=== PATIENT | male | born 1965 | race African-American/Black ===

== ENCOUNTER 2023-03-15 21:46 | Emergency (ER) | payer MEDICARE, OTHER ==
[~2023-03-15] VITALS: Ht 170.2 cm; Wt 105.0 kg
[~2023-03-15 21:46] MED LIST: AMLO-258 PO
[2023-03-15 22:07] VITALS: BP 148/91; PULSE 94; RESP 15; TEMP 98.3
[2023-03-15 23:17] LABS: BASOPHILS % (AUTO) 1.1 % (0.0-2.0); EOSINOPHILS % (AUTO) 2.3 % (1.0-6.0); HEMATOCRIT 32.8 % (41-53); HEMOGLOBIN 11.4 g/dL (13.5-17.5); LYMPHOCYTES # (AUTO) 2.9 K/uL (1.0-4.8); LYMPHOCYTES % (AUTO) 48.8 % (22.0-44.0); MEAN CORPUSCULAR HEMOGLOBIN 33.5 pg (26.0-34.0); MEAN CORPUSCULAR HGB CONC 34.7 G/dL (31.0-37.0); MEAN CORPUSCULAR VOLUME 97 fL (80-100); MONOCYTES # (AUTO) 0.6 K/uL (0.1-1.0); MONOCYTES % (AUTO) 9.9 % (2.0-9.0); NEUTROPHILS # (AUTO) 2.2 K/uL (1.8-7.7); NEUTROPHILS % (AUTO) 37.9 % (40.0-70.0); PLATELET COUNT (AUTO) 199 K/uL (150-450); RED BLOOD CELL COUNT(AUTO) 3.39 MIL/uL (4.50-5.90); RED CELL DISTRIBUTION WIDTH 15.1 % (11.5-14.5); WHITE BLOOD COUNT (AUTO) 5.8 K/uL (4.5-11.0)
[2023-03-15 23:21] LABS: ANION GAP 11 mmol/L (8-16); CALCIUM, TOTAL 8.7 mg/dL (8.8-10.5); CARBON DIOXIDE 28 mmol/L (22-29); CHLORIDE 101 mmol/L (98-107); CREATININE 1.04 mg/dL (0.60-1.30); GLOMERULAR FILTR. RATE CALC > 60 mL/min (>60); GLUCOSE,RANDOM 106 mg/dL (70-110); POTASSIUM 3.2 mmol/L (3.5-5.1); SODIUM SERUM 140 mmol/L (136-145); UREA NITROGEN, BLOOD 12 mg/dL (7-18)
[2023-03-15 23:27] LABS: ALANINE AMINOTRANSFERASE 17 U/L (12-78); ALBUMIN 3.4 g/dL (3.4-5.0); ALKALINE PHOSPHATASE 97 U/L (46-116); ASPARTATE AMINOTRANSFERASE 26 U/L (15-37); BILIRUBIN,TOTAL 0.4 mg/dL (0.1-1.0); TOTAL PROTEIN, SERUM 8.1 g/dL (6.4-8.2)
[2023-03-21] MEDS ORDERED: BACI28.410 TP (01:55)
[2023-03-21] MEDS ORDERED: DOXY-354 PO (01:55)
== END 2023-03-16 00:20 | disposition left against medical advice (07) ==
LOC: EMS 21:46
DX: M79.604 Pain in right leg (principal); Z53.21 Procedure and treatment not carried out due to patient leaving prior to being seen by health care provider
CPT/HCPCS: 80053; 85025; 99281

== ENCOUNTER 2024-02-15 23:52 | Emergency (ER) | payer MEDICARE, OTHER ==
[~2024-02-15] VITALS: Ht 170.2 cm; Wt 100.0 kg
[~2024-02-15 23:52] MED LIST changes: -AMLO-258 PO; +LINE600T14 PO
[2024-02-15 23:59] VITALS: BP 162/81; PULSE 98; RESP 20; TEMP 97.8; O2SAT 98
[2024-02-16 01:36] LABS: BASOPHILS % (AUTO) 0.5 % (0.0-2.0); HEMATOCRIT 38.1 % (41-53); HEMOGLOBIN 12.9 g/dL (13.5-17.5); LYMPHOCYTES # (AUTO) 1.5 K/uL (1.0-4.8); LYMPHOCYTES % (AUTO) 18.8 % (22.0-44.0); MEAN CORPUSCULAR HGB CONC 33.8 G/dL (31.0-37.0); MEAN CORPUSCULAR VOLUME 106 fL (80-100); MONOCYTES # (AUTO) 1.5 K/uL (0.1-1.0); MONOCYTES % (AUTO) 19.4 % (2.0-9.0); NEUTROPHILS # (AUTO) 4.8 K/uL (1.8-7.7); NEUTROPHILS % (AUTO) 60.3 % (40.0-70.0); PLATELET COUNT (AUTO) 263 K/uL (150-450); RED BLOOD CELL COUNT(AUTO) 3.59 MIL/uL (4.50-5.90); WHITE BLOOD COUNT (AUTO) 7.9 K/uL (4.5-11.0)
[2024-02-16 01:41] LABS: RBC MORPHOLOGY COMMENT ABNORMAL RBC MORPH
[2024-02-16] MEDS: CEPHALEXIN MONOHYDRATE 500 MG CAPSULE PO ONE (01:59)
[2024-02-16] MEDS: LIDOCAINE/PF 1% 2 ML VIAL IM ONE (01:59)
[2024-02-16] MEDS: CefTRIAXone SODIUM 1 GM/VIAL IM ONE (01:59)
[2024-02-16] MEDS ORDERED: CEPH-558 PO (02:29)
== END 2024-02-16 02:00 | disposition home or self-care (01) ==
LOC: EMS 23:57
DX: I89.0 Lymphedema, not elsewhere classified (principal); M79.604 Pain in right leg; I10 Essential (primary) hypertension; E03.9 Hypothyroidism, unspecified
CPT/HCPCS: 99283; 85025; 36415; 96372; J0696; J3490

== ENCOUNTER 2024-02-19 04:14 | Emergency (ER) | payer MEDICARE, OTHER ==
[~2024-02-19] VITALS: Ht 170.2 cm; Wt 100.0 kg
[~2024-02-19 04:14] MED LIST changes: +CEPH-558 PO
[2024-02-19 04:23] VITALS: TEMP 97.2
[2024-02-19 06:44] VITALS: BP 149/105; PULSE 100; RESP 18; O2SAT 96
== END 2024-02-19 07:53 | disposition home or self-care (01) ==
LOC: EMS 04:15
DX: I89.0 Lymphedema, not elsewhere classified (principal); I10 Essential (primary) hypertension; E03.9 Hypothyroidism, unspecified; Z91.018 Allergy to other foods; Z59.00 Homelessness unspecified
CPT/HCPCS: 99283; Z7502

== ENCOUNTER 2024-03-20 16:26 | Inpatient (IN) | payer MEDICARE, OTHER ==
[~2024-03-20] VITALS: Ht 170.2 cm; Wt 105.1 kg
[2024-03-20] MEDS ORDERED: 0.9% SODIUM CHLORIDE 10 ML SYRINGE IVP PRN (20:30)
[2024-03-20] MEDS ORDERED: VANCOMYCIN 1GM/WATER(PEG/NADA) 200 ML IV ONE (20:30)
[2024-03-20] MEDS ORDERED: ONDANSETRON HCL 4 MG/2 ML VIAL IVP PRN (21:00)
[2024-03-20] MEDS ORDERED: ACETAMINOPHEN 325 MG TABLET PO PRN (21:00)
[2024-03-20 21:24] LABS: EOSINOPHILS % (AUTO) 2.8 % (1.0-6.0); HEMATOCRIT 37.2 % (41-53); HEMOGLOBIN 12.2 g/dL (13.5-17.5); LYMPHOCYTES # (AUTO) 2.6 K/uL (1.0-4.8); LYMPHOCYTES % (AUTO) 38.5 % (22.0-44.0); MEAN CORPUSCULAR HEMOGLOBIN 34.8 pg (26.0-34.0); MEAN CORPUSCULAR HGB CONC 32.9 G/dL (31.0-37.0); MEAN CORPUSCULAR VOLUME 106 fL (80-100); MONOCYTES # (AUTO) 0.8 K/uL (0.1-1.0); MONOCYTES % (AUTO) 12.1 % (2.0-9.0); NEUTROPHILS % (AUTO) 45.6 % (40.0-70.0); PLATELET COUNT (AUTO) 338 K/uL (150-450); RED BLOOD CELL COUNT(AUTO) 3.51 MIL/uL (4.50-5.90); RED CELL DISTRIBUTION WIDTH 13.8 % (11.5-14.5); WHITE BLOOD COUNT (AUTO) 6.7 K/uL (4.5-11.0)
[2024-03-20 21:48] LABS: LACTIC ACID 1.7 mmol/L (0.4-2.0)
[2024-03-20 22:09] LABS: ANION GAP 13 mmol/L (8-16); CARBON DIOXIDE 22 mmol/L (22-29); CHLORIDE 100 mmol/L (98-107); CREATININE 1.03 mg/dL (0.60-1.30); GLOMERULAR FILTR. RATE CALC > 60 mL/min (>60); GLUCOSE,RANDOM 89 mg/dL (70-110); POTASSIUM 3.7 mmol/L (3.5-5.1); SODIUM SERUM 135 mmol/L (136-145); UREA NITROGEN, BLOOD 11 mg/dL (7-18)
[2024-03-20] MEDS: SODIUM CHLORIDE 0.9% 2,000 ML IV ONE (22:09)
[2024-03-20] MEDS: VANCOMYCIN 1.5 GM/WATER(PEG) 300 ML IV ONE (22:10)
[2024-03-20] MEDS: CefTRIAXone 1 GM/DEXTROSE 50 ML IV SCH (22:10)
[2024-03-20] MEDS: HYDROGEN PEROXIDE 473 ML SOLUTION TP SCH (22:19)
[2024-03-20] MEDS: DOCUSATE SODIUM 100 MG CAPSULE PO SCH (22:20)
[2024-03-20 23:56] VITALS: BP 141/92; PULSE 93; RESP 20; TEMP 98.7; O2SAT 96
[2024-03-21] MEDS ORDERED: LORazepam 2 MG/ML VIAL IVP PRN (00:15)
[2024-03-21] MEDS: 1: MAGNESIUM SULFATE 2 GM, MVI, ADULT NO.1 WITH VIT K 10 ML, THIAMINE 100 MG, FOLIC ACID IV SCH (02:42)
[2024-03-21 05:43] VITALS: BP 157/101; PULSE 86; RESP 20; TEMP 98.1; O2SAT 98
[2024-03-21 05:58] VITALS: BP 170/102; RESP 19; O2SAT 98
[2024-03-21] MEDS: AmLODIPine BESYLATE 10 MG TABLET PO ONE (06:28)
[2024-03-21 07:05] VITALS: BP 170/98; PULSE 89; RESP 18; TEMP 98.7; O2SAT 91
[2024-03-21 07:43] LABS: EOSINOPHILS % (AUTO) 3.7 % (1.0-6.0); HEMATOCRIT 38.7 % (41-53); HEMOGLOBIN 13.2 g/dL (13.5-17.5); LYMPHOCYTES # (AUTO) 1.6 K/uL (1.0-4.8); LYMPHOCYTES % (AUTO) 29.9 % (22.0-44.0); MEAN CORPUSCULAR HEMOGLOBIN 36.1 pg (26.0-34.0); MEAN CORPUSCULAR HGB CONC 34.1 G/dL (31.0-37.0); MEAN CORPUSCULAR VOLUME 106 fL (80-100); MONOCYTES # (AUTO) 0.7 K/uL (0.1-1.0); MONOCYTES % (AUTO) 13.5 % (2.0-9.0); NEUTROPHILS # (AUTO) 2.9 K/uL (1.8-7.7); NEUTROPHILS % (AUTO) 51.9 % (40.0-70.0); PLATELET COUNT (AUTO) 325 K/uL (150-450); RED BLOOD CELL COUNT(AUTO) 3.66 MIL/uL (4.50-5.90); RED CELL DISTRIBUTION WIDTH 14.1 % (11.5-14.5); WHITE BLOOD COUNT (AUTO) 5.5 K/uL (4.5-11.0)
[2024-03-21 07:54] LABS: APPEARANCE,URINE CLEAR (CLEAR); BILIRUBIN,URINE NEGATIVE (NEGATIVE); COLOR,URINE LIGHT YELLOW (YELLOW); GLUCOSE, URINE (UA) NEGATIVE (NEGATIVE); KETONES,URINE NEGATIVE (NEGATIVE); LEUKOCYTE ESTERASE ,URINE NEGATIVE (NEGATIVE); NITRATE,URINE NEGATIVE (NEGATIVE); OCCULT BLOOD,URINE NEGATIVE (NEGATIVE); PROTEIN,URINE NEGATIVE (NEGATIVE); UROBILINOGEN,URINE <=1.0 mg/dL (<=1.0)
[2024-03-21 07:59] LABS: ANION GAP 10 mmol/L (8-16); CALCIUM, TOTAL 9.3 mg/dL (8.8-10.5); CARBON DIOXIDE 23 mmol/L (22-29); CHLORIDE 101 mmol/L (98-107); CREATININE 0.93 mg/dL (0.60-1.30); GLOMERULAR FILTR. RATE CALC > 60 mL/min (>60); GLUCOSE,RANDOM 77 mg/dL (70-110); POTASSIUM 3.7 mmol/L (3.5-5.1); SODIUM SERUM 134 mmol/L (136-145); UREA NITROGEN, BLOOD 9 mg/dL (7-18)
[2024-03-21] MEDS: VANCOMYCIN 1GM/WATER(PEG/NADA) 200 ML IV SCH (08:32)
[2024-03-21 09:52] LABS: RBC MORPHOLOGY COMMENT ABNORMAL RBC MORPH
[2024-03-21] MEDS ORDERED: HEPARIN SODIUM,PORCINE 5,000 UNITS/ML VIAL IVP PRN (10:15)
[2024-03-21] MEDS: PIPERACILLIN/TAZO 3.375 GM/D5W 50 ML IV SCH (12:21)
[2024-03-21 12:31] LABS: BASOPHILS % (AUTO) 0.2 % (0.0-2.0); EOSINOPHILS % (AUTO) 2.8 % (1.0-6.0); HEMATOCRIT 42.4 % (41-53); HEMOGLOBIN 14.1 g/dL (13.5-17.5); LYMPHOCYTES # (AUTO) 1.3 K/uL (1.0-4.8); LYMPHOCYTES % (AUTO) 20.4 % (22.0-44.0); MEAN CORPUSCULAR HEMOGLOBIN 35.3 pg (26.0-34.0); MEAN CORPUSCULAR HGB CONC 33.3 G/dL (31.0-37.0); MEAN CORPUSCULAR VOLUME 106 fL (80-100); MONOCYTES # (AUTO) 0.6 K/uL (0.1-1.0); MONOCYTES % (AUTO) 9.4 % (2.0-9.0); NEUTROPHILS # (AUTO) 4.3 K/uL (1.8-7.7); NEUTROPHILS % (AUTO) 67.2 % (40.0-70.0); PLATELET COUNT (AUTO) 348 K/uL (150-450); RED CELL DISTRIBUTION WIDTH 14.1 % (11.5-14.5); WHITE BLOOD COUNT (AUTO) 6.3 K/uL (4.5-11.0)
[2024-03-21 12:47] LABS: PROTHROMBIN TIME 11.4 SEC (9.4-11.6)
[2024-03-21 13:47] LABS: RBC MORPHOLOGY COMMENT ABNORMAL RBC MORPH
[2024-03-21] MEDS: HEPARIN SODIUM 25000 UNITS/D5W 250 ML IV PRN (15:04)
[2024-03-21 15:47] VITALS: BP 157/95; PULSE 109; RESP 18; TEMP 98.9; O2SAT 94
[2024-03-21 20:25] VITALS: BP 139/87; PULSE 100; RESP 18; TEMP 98.9; O2SAT 98
[2024-03-21] MEDS: VANCOMYCIN 1.25 GM/WATER(PEG) 250 ML IV SCH (22:08)
[2024-03-21] MEDS: HEPARIN SODIUM,PORCINE 5,000 UNITS/ML VIAL IVP PRN (22:52)
[2024-03-22] MEDS ORDERED: HEPARIN SODIUM,PORCINE 5,000 UNITS/ML VIAL SQ SCH
[2024-03-22 04:56] VITALS: BP 140/67; PULSE 86; RESP 18; TEMP 98; O2SAT 100
[2024-03-22 07:08] LABS: ANION GAP 4 mmol/L (8-16); CALCIUM, TOTAL 9.2 mg/dL (8.8-10.5); CARBON DIOXIDE 29 mmol/L (22-29); CHLORIDE 98 mmol/L (98-107); GLOMERULAR FILTR. RATE CALC > 60 mL/min (>60); GLUCOSE,RANDOM 108 mg/dL (70-110); POTASSIUM 3.9 mmol/L (3.5-5.1); SODIUM SERUM 131 mmol/L (136-145); UREA NITROGEN, BLOOD 9 mg/dL (7-18)
[2024-03-22 07:10] LABS: BASOPHILS % (AUTO) 0.7 % (0.0-2.0); HEMATOCRIT 43.5 % (41-53); HEMOGLOBIN 14.6 g/dL (13.5-17.5); LYMPHOCYTES # (AUTO) 1.7 K/uL (1.0-4.8); LYMPHOCYTES % (AUTO) 23.6 % (22.0-44.0); MEAN CORPUSCULAR HEMOGLOBIN 35.8 pg (26.0-34.0); MEAN CORPUSCULAR HGB CONC 33.7 G/dL (31.0-37.0); MEAN CORPUSCULAR VOLUME 106 fL (80-100); MONOCYTES # (AUTO) 0.9 K/uL (0.1-1.0); NEUTROPHILS # (AUTO) 4.2 K/uL (1.8-7.7); NEUTROPHILS % (AUTO) 59.7 % (40.0-70.0); PLATELET COUNT (AUTO) 319 K/uL (150-450); RED BLOOD CELL COUNT(AUTO) 4.09 MIL/uL (4.50-5.90); WHITE BLOOD COUNT (AUTO) 7.1 K/uL (4.5-11.0)
[2024-03-22 08:00] VITALS: BP 158/90; PULSE 88; RESP 18; TEMP 98; O2SAT 100
[2024-03-22] MEDS: AmLODIPine BESYLATE 10 MG TABLET PO SCH (08:13)
[2024-03-22 08:25] LABS: RBC MORPHOLOGY COMMENT ABNORMAL RBC MORPH
[2024-03-22 19:18] VITALS: BP 137/75; PULSE 84; RESP 18; TEMP 98.7; O2SAT 98
[2024-03-23 05:26] VITALS: BP 154/88; PULSE 89; RESP 18; TEMP 98; O2SAT 98
[2024-03-23 07:28] LABS: BASOPHILS % (AUTO) 1.2 % (0.0-2.0); EOSINOPHILS % (AUTO) 4.2 % (1.0-6.0); HEMATOCRIT 43.7 % (41-53); HEMOGLOBIN 14.8 g/dL (13.5-17.5); LYMPHOCYTES # (AUTO) 2.1 K/uL (1.0-4.8); MEAN CORPUSCULAR HEMOGLOBIN 35.6 pg (26.0-34.0); MEAN CORPUSCULAR HGB CONC 33.9 G/dL (31.0-37.0); MEAN CORPUSCULAR VOLUME 105 fL (80-100); MONOCYTES # (AUTO) 0.7 K/uL (0.1-1.0); MONOCYTES % (AUTO) 10.2 % (2.0-9.0); NEUTROPHILS % (AUTO) 55.4 % (40.0-70.0); PLATELET COUNT (AUTO) 337 K/uL (150-450); RED BLOOD CELL COUNT(AUTO) 4.15 MIL/uL (4.50-5.90); RED CELL DISTRIBUTION WIDTH 14.1 % (11.5-14.5); WHITE BLOOD COUNT (AUTO) 7.3 K/uL (4.5-11.0)
[2024-03-23 07:35] LABS: ANION GAP 9 mmol/L (8-16); CALCIUM, TOTAL 9.7 mg/dL (8.8-10.5); CARBON DIOXIDE 27 mmol/L (22-29); CHLORIDE 94 mmol/L (98-107); GLOMERULAR FILTR. RATE CALC > 60 mL/min (>60); GLUCOSE,RANDOM 102 mg/dL (70-110); POTASSIUM 3.5 mmol/L (3.5-5.1); SODIUM SERUM 130 mmol/L (136-145); UREA NITROGEN, BLOOD 5 mg/dL (7-18)
[2024-03-23 07:53] VITALS: BP 142/81; PULSE 88; RESP 20; TEMP 98.1; O2SAT 98
[2024-03-23 08:12] LABS: VANCOMYCIN,RANDOM 23.8 mcg/mL (25.0-50.0)
[2024-03-23 15:48] VITALS: BP 137/79; PULSE 84; RESP 20; TEMP 98.4; O2SAT 99
[2024-03-23 20:12] VITALS: BP 117/67; PULSE 91; RESP 20; TEMP 98.9; O2SAT 99
[2024-03-24 05:14] VITALS: BP 118/70; PULSE 85; RESP 18; TEMP 98.6; O2SAT 100
[2024-03-24 07:05] LABS: BASOPHILS % (AUTO) 0.8 % (0.0-2.0); EOSINOPHILS % (AUTO) 3.7 % (1.0-6.0); HEMATOCRIT 39.4 % (41-53); HEMOGLOBIN 13.5 g/dL (13.5-17.5); LYMPHOCYTES # (AUTO) 1.7 K/uL (1.0-4.8); LYMPHOCYTES % (AUTO) 28.4 % (22.0-44.0); MEAN CORPUSCULAR HEMOGLOBIN 35.8 pg (26.0-34.0); MEAN CORPUSCULAR HGB CONC 34.2 G/dL (31.0-37.0); MEAN CORPUSCULAR VOLUME 105 fL (80-100); MONOCYTES # (AUTO) 0.8 K/uL (0.1-1.0); MONOCYTES % (AUTO) 13.9 % (2.0-9.0); NEUTROPHILS # (AUTO) 3.1 K/uL (1.8-7.7); NEUTROPHILS % (AUTO) 53.2 % (40.0-70.0); PLATELET COUNT (AUTO) 274 K/uL (150-450); RED BLOOD CELL COUNT(AUTO) 3.76 MIL/uL (4.50-5.90); RED CELL DISTRIBUTION WIDTH 13.9 % (11.5-14.5); WHITE BLOOD COUNT (AUTO) 5.9 K/uL (4.5-11.0)
[2024-03-24 07:26] LABS: RBC MORPHOLOGY COMMENT ABNORMAL RBC MORPH
[2024-03-24 07:36] LABS: ANION GAP 8 mmol/L (8-16); CALCIUM, TOTAL 9.7 mg/dL (8.8-10.5); CARBON DIOXIDE 26 mmol/L (22-29); CHLORIDE 97 mmol/L (98-107); GLOMERULAR FILTR. RATE CALC > 60 mL/min (>60); GLUCOSE,RANDOM 110 mg/dL (70-110); POTASSIUM 3.9 mmol/L (3.5-5.1); SODIUM SERUM 131 mmol/L (136-145); UREA NITROGEN, BLOOD 5 mg/dL (7-18)
[2024-03-24 07:45] VITALS: BP 131/78; PULSE 80; RESP 18; TEMP 97.8; O2SAT 99
[2024-03-24] MEDS: VANCOMYCIN 1GM/WATER(PEG/NADA) 200 ML IV SCH (10:28)
[2024-03-24] MEDS ORDERED: AMLO-258 PO (15:21)
[2024-03-24] MEDS ORDERED: PIPE3.3773 IV (15:22)
[2024-03-24] MEDS ORDERED: VANC250C20 IV (15:24)
[2024-03-24] MEDS ORDERED: VANC1PIG IV (15:27)
[2024-03-24] MEDS ORDERED: THIA100T80 PO (15:28)
[2024-03-24] MEDS ORDERED: FOLI-130 PO (15:28)
[2024-03-24] MEDS ORDERED: RIVA15TA PO (15:30)
[2024-03-24] MEDS ORDERED: RIVA20TA PO (15:31)
== END 2024-03-24 19:39 | DRG 300 ==
LOC: EMS 16:26 → EDH 21:44 → 6S 23:38
PROVIDERS: ADMIT Internal Medicine; ATTEND Internal Medicine
DX: I82.461 Acute embolism and thrombosis of right calf muscular vein (principal); E51.2 Wernicke's encephalopathy; L03.115 Cellulitis of right lower limb; Z59.00 Homelessness unspecified; L02.415 Cutaneous abscess of right lower limb; F10.20 Alcohol dependence, uncomplicated; D64.9 Anemia, unspecified; I10 Essential (primary) hypertension; Y90.9 Presence of alcohol in blood, level not specified; Z79.01 Long term (current) use of anticoagulants; Z91.199 Patient's noncompliance with other medical treatment and regimen due to unspecified reason; Z79.899 Other long term (current) drug therapy
CPT/HCPCS: 71045; 80048; 80202; 81003; 82271; 83605; 83735; 84145; 84443; 85025; 85610; 85730; 87040; 93005; 93971; 97116; 97162; 97530; 99285; J0696; J1644; J2405; J2543; J3411; J3475; J3490; J7030; 36415-L1; 36415-TC

== ENCOUNTER 2024-08-28 16:05 | Emergency (ER) | payer MEDICARE, OTHER ==
[~2024-08-28] VITALS: Ht 170.2 cm; Wt 81.8 kg
[~2024-08-28 16:05] MED LIST changes: +ACET-2247 PO; +AMLO-258 PO; -CEPH-558 PO; +FOLI-130 PO; -LINE600T14 PO; +MULT-1303 PO; +RIVA20TA PO; +THIA100T80 PO
[2024-08-28 16:24] VITALS: TEMP 97.9
[2024-08-28 21:33] LABS: BASOPHILS % (AUTO) 1.5 % (0.0-2.0); EOSINOPHILS % (AUTO) 1.4 % (1.0-6.0); HEMATOCRIT 35.2 % (41-53); LYMPHOCYTES # (AUTO) 3.3 K/uL (1.0-4.8); LYMPHOCYTES % (AUTO) 60.1 % (22.0-44.0); MEAN CORPUSCULAR HEMOGLOBIN 33.8 pg (26.0-34.0); MEAN CORPUSCULAR VOLUME 99 fL (80-100); MONOCYTES # (AUTO) 0.2 K/uL (0.1-1.0); MONOCYTES % (AUTO) 4.4 % (2.0-9.0); NEUTROPHILS # (AUTO) 1.8 K/uL (1.8-7.7); NEUTROPHILS % (AUTO) 32.6 % (40.0-70.0); PLATELET COUNT (AUTO) 508 K/uL (150-450); RED BLOOD CELL COUNT(AUTO) 3.55 MIL/uL (4.50-5.90); RED CELL DISTRIBUTION WIDTH 22.6 % (11.5-14.5); WHITE BLOOD COUNT (AUTO) 5.6 K/uL (4.5-11.0)
[2024-08-28 21:37] LABS: COVID AG,FIA SOURCE NASAL SWAB
[2024-08-28 21:38] LABS: RBC MORPHOLOGY COMMENT ABNORMAL RBC MORPH
[2024-08-28 21:42] LABS: ANION GAP 9 mmol/L (8-16); CALCIUM, TOTAL 8.9 mg/dL (8.8-10.5); CARBON DIOXIDE 26 mmol/L (22-29); CHLORIDE 104 mmol/L (98-107); CREATININE 1.06 mg/dL (0.60-1.30); GLOMERULAR FILTR. RATE CALC > 60 mL/min (>60); GLUCOSE,RANDOM 101 mg/dL (70-110); POTASSIUM 3.8 mmol/L (3.5-5.1); SODIUM SERUM 139 mmol/L (136-145); UREA NITROGEN, BLOOD 15 mg/dL (7-18)
[2024-08-28 22:00] LABS: SARS-COV2 (COVID) ANTIGEN,FIA Negative (Negative)
[2024-08-28] MEDS: cefuroxime axetiL 250 MG TABLET PO ONE (23:02)
[2024-08-28] MEDS ORDERED: CEFU250T87 PO (23:15)
[2024-08-29 06:45] VITALS: BP 148/90; PULSE 82; RESP 16; O2SAT 98
[2024-08-29] MEDS: ACETAMINOPHEN 325 MG TABLET PO ONE (10:51)
== END 2024-08-28 23:30 | disposition home or self-care (01) ==
LOC: EMS 16:06
DX: L03.115 Cellulitis of right lower limb (principal); I10 Essential (primary) hypertension; E03.9 Hypothyroidism, unspecified; F03.93 Unspecified dementia, unspecified severity, with mood disturbance; F31.9 Bipolar disorder, unspecified; I89.0 Lymphedema, not elsewhere classified; F10.90 Alcohol use, unspecified, uncomplicated; Z91.018 Allergy to other foods; Z79.899 Other long term (current) drug therapy; Z20.822 Contact with and (suspected) exposure to COVID-19; Y90.9 Presence of alcohol in blood, level not specified
CPT/HCPCS: 99283; 87426; 80048; 85025; 36415; G0480

== ENCOUNTER 2024-10-31 10:36 | Inpatient (IN) | payer MEDICARE ==
[~2024-10-31] VITALS: Ht 172.7 cm; Wt 100.0 kg
[~2024-10-31 10:36] MED LIST changes: -AMLO-258 PO; +CARV-165 PO
[2024-10-31 11:17] LABS: PLATELET COUNT (AUTO) 234 K/uL (150-450); RED BLOOD CELL COUNT(AUTO) 3.34 MIL/uL (4.50-5.90); RED CELL DISTRIBUTION WIDTH 21.0 % (11.5-14.5); WHITE BLOOD COUNT (AUTO) 5.3 K/uL (4.5-11.0)
[2024-10-31 11:41] LABS: CALCIUM, TOTAL 8.2 mg/dL (8.8-10.5); CREATININE 1.20 mg/dL (0.60-1.30); GLOMERULAR FILTR. RATE CALC > 60 mL/min (>60); GLUCOSE,RANDOM 91 mg/dL (70-110); SODIUM SERUM 135 mmol/L (136-145); UREA NITROGEN, BLOOD 9 mg/dL (7-18)
[2024-10-31 11:54] LABS: LACTIC ACID 2.1 mmol/L (0.4-2.0)
[2024-10-31] MEDS: SODIUM CHLORIDE 0.9% 1,000 ML IV ONE (12:53)
[2024-10-31 13:28] LABS: TROPONIN I-HIGH SENSITIVITY 9 ng/L (<76)
[2024-10-31] MEDS: 0.9% SODIUM CHLORIDE 10 ML SYRINGE IVP PRN (13:48)
[2024-10-31] MEDS: VANCOMYCIN 1.5 GM/WATER(PEG) 300 ML IV ONE (13:48)
[2024-10-31] MEDS ORDERED: MAGNESIUM HYDROXIDE SUSPENSION 30 ML UDCUP PO PRN (16:00)
[2024-10-31] MEDS ORDERED: OxyCODONE HCL/ACETAMINOPHEN 5-325 MG TABLET PO PRN (16:00)
[2024-10-31] MEDS ORDERED: ZOLPIDEM TARTRATE 5 MG TABLET PO PRN (16:00)
[2024-10-31] MEDS ORDERED: ONDANSETRON HCL 4 MG/2 ML VIAL IVP PRN (16:00)
[2024-10-31] MEDS ORDERED: ALBUTEROL SULFATE 2.5 MG/0.5 ML NEB SOLUTION NEB PRN (16:00)
[2024-10-31] MEDS: LOSARTAN POTASSIUM 25 MG TABLET PO SCH (16:18)
[2024-10-31] MEDS: HEPARIN SODIUM,PORCINE 5,000 UNITS/ML VIAL SQ SCH (16:18)
[2024-10-31 17:00] VITALS: BP 175/95; PULSE 97; RESP 19; TEMP 98.2; O2SAT 100
[2024-10-31 19:40] VITALS: BP 149/83; PULSE 91; RESP 20; TEMP 98.4; O2SAT 97
[2024-10-31] MEDS: VANCOMYCIN 1.25 GM/WATER(PEG) 250 ML IV SCH (20:24)
[2024-10-31] MEDS: DOCUSATE SODIUM 100 MG CAPSULE PO SCH (20:24)
[2024-11-01 04:53] VITALS: BP 144/73; PULSE 72; RESP 20; TEMP 98.2; O2SAT 99
[2024-11-01 08:00] VITALS: BP 154/84; PULSE 67; RESP 18; TEMP 98.6; O2SAT 98
[2024-11-01] MEDS: MULTIVITAMINS WITH MINERALS, THERAPEUTIC TABLET PO SCH (09:03)
[2024-11-01] MEDS: FAMOTIDINE 20 MG TABLET PO SCH (09:03)
[2024-11-01 09:33] LABS: CALCIUM, TOTAL 8.4 mg/dL (8.8-10.5); CREATININE 1.15 mg/dL (0.60-1.30); GLOMERULAR FILTR. RATE CALC > 60 mL/min (>60); GLUCOSE,RANDOM 117 mg/dL (70-110); SODIUM SERUM 134 mmol/L (136-145); UREA NITROGEN, BLOOD 6 mg/dL (7-18)
[2024-11-01 16:10] VITALS: BP 169/108; PULSE 82; RESP 18; TEMP 97.8; O2SAT 98
[2024-11-01] MEDS ORDERED: LABETALOL HCL 5 MG/ML 20 ML VIAL IVP PRN (16:15)
[2024-11-01 20:00] VITALS: BP 159/84; PULSE 72; RESP 18; TEMP 98.4; O2SAT 99
[2024-11-01] MEDS ORDERED: SODIUM CHLORIDE 0.9% 500 ML IV ONE (21:33)
[2024-11-02 05:44] VITALS: BP 159/96; PULSE 67; RESP 20; TEMP 98.6; O2SAT 99
[2024-11-02 07:03] LABS: CALCIUM, TOTAL 8.5 mg/dL (8.8-10.5); CREATININE 1.04 mg/dL (0.60-1.30); GLOMERULAR FILTR. RATE CALC > 60 mL/min (>60); GLUCOSE,RANDOM 111 mg/dL (70-110); SODIUM SERUM 136 mmol/L (136-145); UREA NITROGEN, BLOOD 5 mg/dL (7-18)
[2024-11-02 08:00] VITALS: BP 159/88; PULSE 74; RESP 20; TEMP 98.1; O2SAT 98
[2024-11-02] MEDS: VANCOMYCIN 1.5 GM/WATER(PEG) 300 ML IV SCH (08:58)
[2024-11-02] MEDS: LOSARTAN POTASSIUM 50 MG TABLET PO SCH (08:58)
[2024-11-02] MEDS: ACETAMINOPHEN 325 MG TABLET PO PRN (09:09)
[2024-11-02 16:00] VITALS: BP 160/95; PULSE 71; RESP 20; TEMP 98.1; O2SAT 99
[2024-11-02 18:57] LABS: APPEARANCE,URINE CLEAR (CLEAR); GLUCOSE, URINE (UA) NEGATIVE (NEGATIVE); LEUKOCYTE ESTERASE ,URINE NEGATIVE (NEGATIVE); NITRATE,URINE NEGATIVE (NEGATIVE); OCCULT BLOOD,URINE NEGATIVE (NEGATIVE); SPECIFIC GRAVITIY, URINE 1.016 (1.003-1.030)
[2024-11-02 20:24] VITALS: BP 164/104; PULSE 69; RESP 20; TEMP 98.4; O2SAT 98
[2024-11-02 23:35] VITALS: BP 151/92; PULSE 68; RESP 18; TEMP 98.2; O2SAT 99
[2024-11-03 03:45] VITALS: BP 152/87; PULSE 68; RESP 20; TEMP 98.1; O2SAT 99
[2024-11-03 08:12] VITALS: BP 170/106; PULSE 90; RESP 19; TEMP 98.1; O2SAT 99
[2024-11-03 08:43] LABS: CALCIUM, TOTAL 8.9 mg/dL (8.8-10.5); CREATININE 1.19 mg/dL (0.60-1.30); GLOMERULAR FILTR. RATE CALC > 60 mL/min (>60); GLUCOSE,RANDOM 96 mg/dL (70-110); SODIUM SERUM 133 mmol/L (136-145); UREA NITROGEN, BLOOD 7 mg/dL (7-18)
[2024-11-03 09:12] VITALS: BP 153/99; PULSE 84; RESP 19; TEMP 97.9; O2SAT 100
[2024-11-03] MEDS ORDERED: DOXY100I IV (11:35)
[2024-11-03] MEDS ORDERED: LOSA-382 PO (11:35)
== END 2024-11-03 14:30 | disposition home or self-care (01) | DRG 603 ==
LOC: EMS 10:54 → EDH 15:27 → 6S 16:29 → 4E 19:10
PROVIDERS: ADMIT Internal Medicine; ATTEND Internal Medicine
DX: L03.115 Cellulitis of right lower limb (principal); Z59.00 Homelessness unspecified; I10 Essential (primary) hypertension; F10.10 Alcohol abuse, uncomplicated; E66.9 Obesity, unspecified; R41.89 Other symptoms and signs involving cognitive functions and awareness; F31.9 Bipolar disorder, unspecified; Y90.9 Presence of alcohol in blood, level not specified; E03.9 Hypothyroidism, unspecified; F03.90 Unspecified dementia, unspecified severity, without behavioral disturbance, psychotic disturbance, mood disturbance, and anxiety; Z91.018 Allergy to other foods; Z91.199 Patient's noncompliance with other medical treatment and regimen due to unspecified reason; Z68.33 Body mass index [BMI] 33.0-33.9, adult
CPT/HCPCS: 71045; 80048; 80202; 81003; 83605; 83880; 84145; 84484; 85025; 85610; 87040; 93005; 93971; 96361; 96365; 96375; 99291; G0378; J1644; J7040; 36415-L1; 36415-TC

== ENCOUNTER 2024-12-18 11:40 | Inpatient (IN) | payer MEDICARE ==
[~2024-12-18] VITALS: Ht 177.8 cm; Wt 100.0 kg
[~2024-12-18 11:40] MED LIST changes: -ACET-2247 PO; -CARV-165 PO; +DOXY100I IV; -FOLI-130 PO; +LOSA-382 PO; -MULT-1303 PO; -RIVA20TA PO; -THIA100T80 PO
[2024-12-18 14:19] LABS: PLATELET COUNT (AUTO) 237 K/uL (150-450); RED BLOOD CELL COUNT(AUTO) 3.98 MIL/uL (4.50-5.90); RED CELL DISTRIBUTION WIDTH 18.7 % (11.5-14.5); WHITE BLOOD COUNT (AUTO) 19.4 K/uL (4.5-11.0)
[2024-12-18 14:20] LABS: CALCIUM, TOTAL 9.3 mg/dL (8.8-10.5); CREATININE 1.13 mg/dL (0.60-1.30); GLOMERULAR FILTR. RATE CALC > 60 mL/min (>60); GLUCOSE,RANDOM 109 mg/dL (70-110); SODIUM SERUM 134 mmol/L (136-145); UREA NITROGEN, BLOOD 10 mg/dL (7-18)
[2024-12-18 14:30] LABS: LACTIC ACID 1.5 mmol/L (0.4-2.0)
[2024-12-18] MEDS: ACETAMINOPHEN 1000 MG/ISO-OSM 100 ML IV ONE (14:45)
[2024-12-18] MEDS: VANCOMYCIN 1GM/WATER(PEG/NADA) 200 ML IV ONE ×2 (15:29→22:14)
[2024-12-18] MEDS ORDERED: BISACODYL 10 MG RECTAL RECTAL SUPPOSITORY PR PRN (16:30)
[2024-12-18] MEDS ORDERED: ONDANSETRON HCL 4 MG/2 ML VIAL IVP PRN (16:30)
[2024-12-18] MEDS ORDERED: MORPHINE SULFATE 4 MG/ML SYRINGE IVP PRN (16:30)
[2024-12-18] MEDS ORDERED: MAGNESIUM HYDROXIDE SUSPENSION 30 ML UDCUP PO PRN (16:30)
[2024-12-18] MEDS ORDERED: ACETAMINOPHEN 325 MG TABLET PO PRN (16:30)
[2024-12-18] MEDS ORDERED: HYDROCODONE/ACETAMINOPHEN 5-325 MG TABLET PO PRN (16:30)
[2024-12-18] MEDS ORDERED: SODIUM CHLORIDE 0.9% 100 ML ONE (19:41)
[2024-12-18] MEDS ORDERED: 0.9% SODIUM CHLORIDE 10 ML SYRINGE IVP ONE (19:41)
[2024-12-18] MEDS ORDERED: IOHEXOL 350 MG/ML 100 ML VIAL ONE (19:41)
[2024-12-18 20:50] VITALS: BP 154/98; PULSE 101; RESP 18; TEMP 98.9; O2SAT 98
[2024-12-18 21:00] VITALS: PULSE 89
[2024-12-18] MEDS: DOCUSATE SODIUM 100 MG CAPSULE PO SCH (21:00)
[2024-12-18] MEDS ORDERED: SODIUM CHLORIDE 0.9% 500 ML IV ONE (22:12)
[2024-12-18] MEDS: HEPARIN SODIUM,PORCINE 5,000 UNITS/ML VIAL SQ SCH (23:52)
[2024-12-19 04:06] VITALS: BP 152/97; PULSE 96; RESP 19; TEMP 97.9; O2SAT 96
[2024-12-19 08:00] VITALS: BP 145/96; PULSE 103; RESP 20; TEMP 99.3; O2SAT 98
[2024-12-19 08:04] LABS: PLATELET COUNT (AUTO) 176 K/uL (150-450); RED BLOOD CELL COUNT(AUTO) 3.61 MIL/uL (4.50-5.90); RED CELL DISTRIBUTION WIDTH 18.3 % (11.5-14.5); WHITE BLOOD COUNT (AUTO) 14.6 K/uL (4.5-11.0)
[2024-12-19] MEDS: PANTOPRAZOLE SODIUM 40 MG DR TABLET PO SCH (08:19)
[2024-12-19] MEDS: LOSARTAN POTASSIUM 50 MG TABLET PO SCH (08:20)
[2024-12-19] MEDS: VANCOMYCIN 1.25 GM/WATER(PEG) 250 ML IV SCH (08:22)
[2024-12-19 08:24] LABS: CALCIUM, TOTAL 8.6 mg/dL (8.8-10.5); CREATININE 0.95 mg/dL (0.60-1.30); GLOMERULAR FILTR. RATE CALC > 60 mL/min (>60); GLUCOSE,RANDOM 103 mg/dL (70-110); SODIUM SERUM 133 mmol/L (136-145); UREA NITROGEN, BLOOD 9 mg/dL (7-18)
[2024-12-19] MEDS ORDERED: POTASSIUM CHLORIDE 20 MEQ ER TABLET PO PRN (10:15)
[2024-12-19] MEDS ORDERED: SODIUM CHLORIDE 0.9% 500 ML IV ONE (11:21)
[2024-12-19] MEDS: POTASSIUM CHL 10 MEQ/WATER 50 ML IV PRN (11:27)
[2024-12-19 16:00] VITALS: BP 145/90; PULSE 97; RESP 20; TEMP 99.5; O2SAT 100
[2024-12-19 20:25] VITALS: BP 131/86; PULSE 91; RESP 18; TEMP 99.3; O2SAT 97
[2024-12-20 03:58] VITALS: BP 139/78; PULSE 83; RESP 18; TEMP 98.4; O2SAT 97
[2024-12-20 08:01] LABS: CALCIUM, TOTAL 9.2 mg/dL (8.8-10.5); CREATININE 0.90 mg/dL (0.60-1.30); GLOMERULAR FILTR. RATE CALC > 60 mL/min (>60); GLUCOSE,RANDOM 117 mg/dL (70-110); SODIUM SERUM 133 mmol/L (136-145); UREA NITROGEN, BLOOD 9 mg/dL (7-18)
[2024-12-20 08:13] LABS: RED BLOOD CELL COUNT(AUTO) 4.46 MIL/uL (4.50-5.90); RED CELL DISTRIBUTION WIDTH 18.7 % (11.5-14.5); WHITE BLOOD COUNT (AUTO) 13.9 K/uL (4.5-11.0)
[2024-12-20 08:14] VITALS: BP 162/93; PULSE 93; RESP 18; TEMP 98.2; O2SAT 98
[2024-12-20 10:13] LABS: PLATELET COUNT (AUTO) 144 K/uL (150-450)
[2024-12-20 10:14] LABS: RBC MORPHOLOGY COMMENT ABNORMAL RBC MORPH
[2024-12-20] MEDS: SULFAMETHOX/TRIMETH DS 800-160 MG/TABLET PO SCH (14:48)
[2024-12-20] MEDS: FUROSEMIDE 20 MG/2 ML VIAL IVP SCH (15:47)
[2024-12-20 17:21] VITALS: BP 148/84; PULSE 88; RESP 18; TEMP 98; O2SAT 99
[2024-12-20 19:32] VITALS: BP 152/89; PULSE 77; RESP 20; TEMP 98.6; O2SAT 99
[2024-12-20] MEDS: ZOLPIDEM TARTRATE 5 MG TABLET PO PRN (23:53)
[2024-12-21 04:51] VITALS: BP 149/93; PULSE 82; RESP 18; TEMP 98.6; O2SAT 98
[2024-12-21 08:14] VITALS: BP 159/98; PULSE 75; RESP 18; TEMP 98.2; O2SAT 97
[2024-12-21 09:00] LABS: PLATELET COUNT (AUTO) 238 K/uL (150-450); RED BLOOD CELL COUNT(AUTO) 4.00 MIL/uL (4.50-5.90); RED CELL DISTRIBUTION WIDTH 18.1 % (11.5-14.5); WHITE BLOOD COUNT (AUTO) 9.8 K/uL (4.5-11.0)
[2024-12-21 09:09] LABS: CALCIUM, TOTAL 9.2 mg/dL (8.8-10.5); CREATININE 0.93 mg/dL (0.60-1.30); GLOMERULAR FILTR. RATE CALC > 60 mL/min (>60); GLUCOSE,RANDOM 126 mg/dL (70-110); SODIUM SERUM 133 mmol/L (136-145); UREA NITROGEN, BLOOD 9 mg/dL (7-18)
[2024-12-21 09:23] LABS: BAND NEUTROPHILS % (MANUAL) 3 % (0-5); EOSINOPHILS % (MANUAL) 2 % (1-6); LYMPHOCYTES % (MANUAL) 29 % (22-44); MONOCYTES % (MANUAL) 5 % (2-9); RBC MORPHOLOGY COMMENT ABNORMAL RBC MORPH; SEGMENTED NEUTROPHILS % 61 % (40-70)
[2024-12-21] MEDS: POTASSIUM CHLORIDE 10 MEQ ER TABLET PO ONE (14:58)
[2024-12-21] MEDS: *CLINICAL-LEVOFLOXACIN IVPB DOSING CLINICAL ONE (15:36)
[2024-12-21 15:58] VITALS: BP 144/96; PULSE 75; RESP 19; TEMP 98.2; O2SAT 98
[2024-12-21] MEDS: LEVOFLOXACIN 500 MG/D5% WATER 100 ML IV SCH (16:50)
[2024-12-21 19:43] VITALS: BP 147/99; PULSE 78; RESP 18; TEMP 98.8; O2SAT 96
[2024-12-22 04:06] VITALS: BP 137/97; PULSE 79; RESP 18; TEMP 98.6; O2SAT 99
[2024-12-22 07:44] LABS: CALCIUM, TOTAL 9.4 mg/dL (8.8-10.5); CREATININE 1.04 mg/dL (0.60-1.30); GLOMERULAR FILTR. RATE CALC > 60 mL/min (>60); GLUCOSE,RANDOM 124 mg/dL (70-110); SODIUM SERUM 133 mmol/L (136-145); UREA NITROGEN, BLOOD 16 mg/dL (7-18)
[2024-12-22 08:44] VITALS: BP 149/88; PULSE 76; RESP 18; TEMP 98.1; O2SAT 99
[2024-12-22] MEDS ORDERED: LEVO750T68 PO (14:33)
[2024-12-22] MEDS ORDERED: LOSA-382 PO (14:36)
[2024-12-22] MEDS ORDERED: LEVOFLOXACIN 750 MG/D5% WATER 150 ML IV SCH (17:00)
== END 2024-12-22 17:35 | disposition home or self-care (01) | DRG 872 ==
LOC: EMS 11:52 → EDH 16:21 → 4E 20:45
PROVIDERS: ADMIT Internal Medicine; ATTEND Internal Medicine
PROC: 05HA33Z Insertion of Infusion Device into Left Brachial Vein, Percutaneous Approach (ICD-10-PCS; principal; 2024-12-20)
PROC: B54NZZA Ultrasonography of Left Upper Extremity Veins, Guidance (ICD-10-PCS; 2024-12-20)
DX: A41.9 Sepsis, unspecified organism (principal); L03.115 Cellulitis of right lower limb; Z59.00 Homelessness unspecified; E03.9 Hypothyroidism, unspecified; I89.0 Lymphedema, not elsewhere classified; I87.8 Other specified disorders of veins; I95.9 Hypotension, unspecified; D69.59 Other secondary thrombocytopenia; I82.561 Chronic embolism and thrombosis of right calf muscular vein; F31.9 Bipolar disorder, unspecified; F10.20 Alcohol dependence, uncomplicated; E87.6 Hypokalemia; I87.2 Venous insufficiency (chronic) (peripheral); B95.1 Streptococcus, group B, as the cause of diseases classified elsewhere; Y90.9 Presence of alcohol in blood, level not specified; E66.01 Morbid (severe) obesity due to excess calories; F03.90 Unspecified dementia, unspecified severity, without behavioral disturbance, psychotic disturbance, mood disturbance, and anxiety; I10 Essential (primary) hypertension; Z68.31 Body mass index [BMI] 31.0-31.9, adult; Z79.899 Other long term (current) drug therapy
CPT/HCPCS: 36245; 36569; 73701; 76937; 80048; 80202; 83605; 83880; 84132; 85025; 85651; 87040; 87070; 87077; 87186; 87205; 93971; 96365; 96368; 99285; G0378; J0131; J1644; J1938; J1956; J3480; J7040; J7050